=== PATIENT | male | born 1990 | race Caucasian/White ===

== ENCOUNTER 2019-07-24 17:18 | Emergency (ER) | payer MEDICAID ==
[~2019-07-24] VITALS: Ht 182.9 cm; Wt 78.5 kg
--- NOTE | 2019-07-24 17:28 | NUR ---
29 Y/O MALE BIB AMBULANCE WITH C/O MED CLEARANCE FOR [facility]. PER REPORT PT WENT TO [facility] AND [facility] WAS GOING TO TAKE HIM. BUT [facility] TOLD THEM TO BRING PT TO ER FOR MED CLEARNACE BEFORE GOING TO [facility]. PT HAS NO C/O AT THIS TIME. NO PAIN, N/V/D, TRAUMA, SYNCOPE, CP, SOB. PT PLACED ON CONT PULSE OX,NIBP. PT AWARE OF POC. NO OTHER NEEDS REQUESTED AT THIS TIME.
--- NOTE | 2019-07-24 17:35 | NUR ---
PER PT "I WANT TO DETOX FROM HEROIN. I SMOKE IT. I USED LAST NIGHT."
--- NOTE | 2019-07-24 18:18 | NUR ---
PT EDUCATED REGARDING NEEDING UA. PT VERBALIZED UNDERSTANDING. PT PLEASANT AND COMPLIANT.
[2019-07-24 18:26] LABS: BASOPHILS # (AUTO) 0.07 x10^3/uL (0-0.1); BASOPHILS % (AUTO) 1 % (0-1); EOSINOPHILS # (AUTO) 0.11 x10^3/uL (0-0.4); EOSINOPHILS % (AUTO) 2 % (1-7); LYMPHOCYTES # (AUTO) 2.99 x10^3/uL (1-3.4); LYMPHOCYTES % (AUTO) 43 % (22-44); MD NO; MEAN CORPUSCULAR HEMOGLOBIN 29.5 pg (27.5-34.5); MEAN CORPUSCULAR HGB CONC 33.5 g/dL (33.2-36.2); MEAN PLATELET VOLUME 7.9 fL (7.4-10.4); MONOCYTES # (AUTO) 0.39 x10^3/uL (0.2-0.8); MONOCYTES % (AUTO) 6 % (2-9); NEUTROPHILS # (AUTO) 3.43 x10^3/uL (1.8-6.8); NEUTROPHILS % (AUTO) 49 % (42-75); PLATELET COUNT 356 x10^3/uL (130-400); RED BLOOD COUNT 4.74 x10^6/uL (4.38-5.82)
[2019-07-24 18:37] LABS: ALANINE AMINOTRANSFERASE 18 U/L (12-78); ALBUMIN 3.4 g/dL (3.4-5.0); ANION GAP 4 mmol/L (5-15); CALCIUM 8.8 mg/dL (8.5-10.1); CHLORIDE 106 mmol/L (98-107); CREATININE 0.75 mg/dL (0.7-1.3); SALICYLATE LEVEL 3.1 mg/dL (2.8-20.0)
[2019-07-24 18:39] LABS: ALKALINE PHOSPHATASE 68 U/L (45-117); BILIRUBIN,TOTAL 0.2 mg/dL (0.2-1.0); TOTAL PROTEIN 7.4 g/dL (6.4-8.2)
--- NOTE | 2019-07-24 18:52 | NUR ---
MARCO SENT TO LAB. PT RESTING ON NURIA.
--- NOTE | 2019-07-24 18:58 | NUR ---
Lio haile in [facility] - 07/24/19 at 1859 by SIDDHARTHELLFlores BEDSIDE REPORT TO DUSTY RN, ALLA POST AND ALLA GODINEZ.
--- NOTE | 2019-07-24 18:59 | NUR ---
BEDSIDE REPORT TO ALLA MONTANO, SEJAL RN AND ALLA GODINEZ.
[2019-07-24 19:01] VITALS: BP 129/57
--- NOTE | 2019-07-24 19:01 | NUR ---
Break RN: Patient resting in [facility] with no complaints.
[2019-07-24 19:04] LABS: AMPHETAMINE SCREEN, URINE Positive (Negative); BARBITURATE SCREEN, URINE Negative (Negative); BENZODIAZEPINE SCREEN, URINE Negative (Negative); CANNABINOID SCREEN, URINE Positive (Negative); COCAINE SCREEN, URINE Negative (Negative); METHADONE SCREEN, URINE Negative (Negative); OPIATE SCREEN, URINE Positive (Negative)
== END 2019-07-24 19:54 | disposition home or self-care (01) ==
LOC: ED 18:15 → EDBD 18:15 → ED 19:54
DX: F15.10 Other stimulant abuse, uncomplicated (principal); F11.10 Opioid abuse, uncomplicated
CPT/HCPCS: 36415; 80053; 80307; 85025; 99283

== ENCOUNTER 2020-08-11 21:18 | Emergency (ER) | payer MEDICAID ==
[~2020-08-11] VITALS: Ht 182.9 cm; Wt 91.0 kg
[2020-08-11 22:10] VITALS: BP 128/79
--- NOTE | 2020-08-11 22:11 | NUR ---
Pt with dc'd with written and verabl instructions. Pt states he is not sucidal, he does not have a plan, and does not want to harm himself. Pt home with a ride. Pt ambulatory out of ED without difficulty. Pt A&O, calm and appropriate.
== END 2020-08-11 22:14 | disposition home or self-care (01) ==
LOC: ED 22:00
DX: F32.0 Major depressive disorder, single episode, mild (principal); F17.210 Nicotine dependence, cigarettes, uncomplicated
CPT/HCPCS: 99283; 99285; 99406

== ENCOUNTER 2020-09-12 23:51 | Emergency (ER) | payer MEDICAID ==
[~2020-09-12] VITALS: Ht 182.9 cm; Wt 98.2 kg
[2020-09-13 01:02] LABS: ALANINE AMINOTRANSFERASE 24 U/L (12-78); ALBUMIN 3.6 g/dL (3.4-5.0); ANION GAP 5 mmol/L (5-15); CALCIUM 8.4 mg/dL (8.5-10.1); CHLORIDE 104 mmol/L (98-107); CREATININE 0.87 mg/dL (0.7-1.3)
[2020-09-13 01:03] LABS: BASOPHILS % (AUTO) 1 % (0-1); EOSINOPHILS % (AUTO) 2 % (1-7); LYMPHOCYTES % (AUTO) 26 % (22-44); MD NO; MEAN CORPUSCULAR HEMOGLOBIN 29.4 pg (27.5-34.5); MEAN CORPUSCULAR HGB CONC 33.7 g/dL (33.2-36.2); MEAN PLATELET VOLUME 7.6 fL (7.4-10.4); MONOCYTES % (AUTO) 8 % (2-9); NEUTROPHILS % (AUTO) 64 % (42-75); PLATELET COUNT 345 x10^3/uL (130-400); RED BLOOD COUNT 5.39 x10^6/uL (4.38-5.82); RED CELL DISTRIBUTION WIDTH 13.2 % (9.4-14.8)
[2020-09-13 01:04] LABS: ALKALINE PHOSPHATASE 63 U/L (45-117); BILIRUBIN,TOTAL 0.4 mg/dL (0.2-1.0); TOTAL PROTEIN 7.2 g/dL (6.4-8.2)
[2020-09-13 01:23] VITALS: BP 135/74
== END 2020-09-13 01:25 | disposition home or self-care (01) ==
LOC: ED 09-13 01:00
DX: A09 Infectious gastroenteritis and colitis, unspecified (principal); R10.11 Right upper quadrant pain; R11.2 Nausea with vomiting, unspecified
CPT/HCPCS: 36415; 80053; 83690; 85025; 99283